=== PATIENT | female | born 1950 | race Caucasian/White ===

== ENCOUNTER → 2018-06-16 | Outpatient (CLI) | payer OTHER ==
[~2018-06-16] MED LIST: HORMONE CREAM
== END ==
LOC: RAD 07:35
DX: J98.4 Other disorders of lung (principal); J47.9 Bronchiectasis, uncomplicated

== ENCOUNTER → 2021-03-22 | Outpatient (CLI) | payer OTHER | LOC: RAD 08:39 | PROVIDERS: ATTEND Internal Medicine | DX: J47.9 Bronchiectasis, uncomplicated (principal); M47.814 Spondylosis without myelopathy or radiculopathy, thoracic region; M95.4 Acquired deformity of chest and rib ==

== ENCOUNTER → 2021-06-28 | Outpatient (CLI) | payer OTHER | LOC: CAT 08:08 | PROVIDERS: ATTEND Family Medicine | DX: Z13.6 Encounter for screening for cardiovascular disorders (principal); I25.10 Atherosclerotic heart disease of native coronary artery without angina pectoris; E78.00 Pure hypercholesterolemia, unspecified ==